=== PATIENT | female | born 1960 | race Caucasian/White ===

== ENCOUNTER → 2019-01-09 | Outpatient (CLI) | payer OTHER | END | disposition home or self-care (01) | LOC: SONOGRAMA 10:01 → MAMO-SONO 10:15 | DX: N84.0 Polyp of corpus uteri (principal) ==

== ENCOUNTER 2024-12-31 06:00 | Day surgery (SDC) | payer OTHER ==
[2024-12-27 12:13] LABS: HEMATOCRIT 41.4 % (36.0-45.00); HEMOGLOBIN 13.9 g/dL (12.0-15.00); MEAN CELL VOLUME 87.8 fL (80.00-100.00); MEAN CORPUSCULAR HEMOGLOBIN 29.6 pg (27.00-32.0); MEAN CORPUSCULAR HGB CONC 33.7 g/dl (32.0-36.0); PLATELET COUNT 402 K/uL (150-450); RED BLOOD COUNT 4.72 M/uL (4.00-6.00); RED CELL DISTRIBUTION WIDTH 12.7 % (11.5-14.5)
[2024-12-27 12:23] LABS: INR 0.97; PARTIAL THROMBOPLASTIN TIME 26.5 SECONDS (22.0-34.0); PROTHROMBIN TIME 10.6 SECONDS (9.0-11.5)
[2024-12-27 12:54] VITALS: BP 108/75
[2024-12-27 13:00] LABS: ALBUMIN 3.8 gm/dL (3.4-5.0); CALCIUM 8.8 mg/dL (8.5-10.1); CREATININE SERUM 0.47 mg/dL (0.55-1.02); GFR 132.99; GLOBULINA 3.6 G/DL (2.4-3.5); POTASSIUM 4.03 mEq/L (3.5-5.1); TOTAL PROTEIN 7.4 gm/dL (6.4-8.2)
[2024-12-27 14:14] LABS: PH,URINE 5.5 (5.0-8.0); URINE APPEARANCE Cloudy; URINE BILIRRUBIN Negative (NEGATIVE); URINE BLOOD Moderate; URINE COLOR Yellow; URINE GLUCOSE Negative (NEGATIVE); URINE LEUKOCYTE Moderate; URINE NITRATE Negative; URINE PROTEIN 30 (NEGATIVE)
[2024-12-27 14:17] LABS: URINE BACTERIA 231.3 uL (0.0-1933); URINE CAST 4.12 uL (0.0-1.40); URINE EPITHELIAL CELLS 40.6 uL (0.0-38.8); URINE RBC 69.5 uL (0.0-20.8); URINE WBC 62.3 uL (0.0-23.2)
[2024-12-27 14:44] LABS: URINE EPITHELIAL CELLS 0-4 /HPF; URINE KETONE 40 (NEGATIVE)
[2024-12-27 14:45] LABS: URINE MUCUS HEAVY
[~2024-12-31] VITALS: Ht 160 cm; Wt 72.6 kg
[~2024-12-31 06:00] MED LIST: CRESTOR40 MG; LEVOTHYROXINE25 MCG PO; NORVASC2.5 M1; ZETIA10 MG PO
[2024-12-31] MEDS ORDERED: VANCOMYCIN HCL 1,000 MG VIAL ONE ×2 (11:13→11:41)
[2024-12-31] MEDS ORDERED: BUPIVACAINE HCL/MPF 0.5% 30ML VIAL ONE (11:22)
[2024-12-31] MEDS ORDERED: LEVOFLOXACIN500 MG PO (14:24)
[2024-12-31] MEDS ORDERED: ALEVE220 M1 PO (14:24)
[2024-12-31] MEDS ORDERED: PERCOCET 5-3251 EACH PO (14:24)
[2024-12-31] MEDS ORDERED: MEPERIDINE HCL 25 MG/ML AMPUL IV ONE (14:50)
[2024-12-31] MEDS ORDERED: ONDANSETRON HCL 2 MG/ML VIAL ONE (14:58)
== END 2024-12-31 15:40 | disposition home or self-care (01) ==
LOC: CIR.AMB 06:00
PROVIDERS: ATTEND Orthopaedic Surgery
DX: S52.531A Colles' fracture of right radius, initial encounter for closed fracture (principal); M81.0 Age-related osteoporosis without current pathological fracture; Z88.0 Allergy status to penicillin; Z88.2 Allergy status to sulfonamides
CPT/HCPCS: 25609; 20902; L8699